=== PATIENT | female | born 1970 | race Hispanic/Latino ===

== ENCOUNTER 2023-08-21 09:20 | Emergency (ER) | payer BC ==
[2023-08-21] MEDS ORDERED: LACTULOSE 20 GM/30 ML UDCUP ONE (13:01)
[2023-08-22 05:29] LABS: ADD UA MICROSCOPIC YES; APPEARANCE,URINE CLEAR (CLEAR); BILIRUBIN,URINE NEGATIVE (NEGATIVE); COLOR,URINE LIGHT-YELLOW (YELLOW); GLUCOSE, URINE (UA) NEGATIVE (NEGATIVE); KETONES,URINE NEGATIVE (NEGATIVE); LEUKOCYTE ESTERASE ,URINE NEGATIVE Leu/uL (NEGATIVE); NITRATE,URINE NEGATIVE (NEGATIVE); OCCULT BLOOD,URINE SMALL (NEGATIVE); PH,URINE 5.5 (5.0-8.0); PROTEIN,URINE NEGATIVE (NEGATIVE); UROBILINOGEN,URINE 0.2 mg/dL (0.2-1.0)
[2023-08-22 05:30] LABS: BILIRUBIN,TOTAL 0.4 mg/dL (0.2-1.0); CREATININE 0.6 mg/dL (0.5-1.5); POTASSIUM 3.6 mmol/L (3.5-5.1)
[2023-08-22 05:33] LABS: BASOPHILS # (AUTO) 0.06 K/uL (0.00-0.20); BASOPHILS % (AUTO) 0.7 % (0.0-5.0); EOSINOPHILS # (AUTO) 0.32 K/uL (0.00-0.70); EOSINOPHILS % (AUTO) 3.7 % (0.0-8.0); HEMATOCRIT 42.2 % (36-48); IMMATURE GRANULOCYTE ABSOLUTE 0.06 K/uL (0-1); LYMPHOCYTES # (AUTO) 2.6 K/uL (1.0-4.8); LYMPHOCYTES % (AUTO) 30.2 % (21.0-51.0); MEAN CORPUSCULAR HEMOGLOBIN 29.1 pg (27.0-33.0); MEAN CORPUSCULAR HGB CONC 32.9 g/dL (32.0-36.0); MEAN CORPUSCULAR VOLUME 88.5 fL (79-99); MONOCYTES # (AUTO) 0.7 K/uL (0.1-1.0); MONOCYTES % (AUTO) 7.7 % (3.0-13.0); MUCUS,URINE RARE LPF (None Seen); NEUTROPHILS # (AUTO) 4.9 K/uL (1.8-7.7); PLATELET COUNT (AUTO) 221 K/uL (130-400); RED BLOOD CELL COUNT(AUTO) 4.77 MIL/uL (4.00-5.50); RED CELL DISTRIBUTION WIDTH 14.1 % (11.0-15.5); SQUAMOUS EPITHELIAL CELL,UR RARE /HPF (0-2); WHITE BLOOD COUNT (AUTO) 8.6 K/uL (4.8-10.8)
== END 2023-08-21 13:05 | disposition home or self-care (01) ==
LOC: EDH 09:20
DX: K59.00 Constipation, unspecified (principal); Z90.710 Acquired absence of both cervix and uterus
CPT/HCPCS: 36415; 74018; 80053; 81001; 84484; 85025

== ENCOUNTER 2023-10-18 20:50 | Emergency (ER) | payer BC ==
[~2023-10-18] VITALS: Ht 154.9 cm; Wt 81.6 kg
[2023-10-18] MEDS ORDERED: HYDROCODONE/ACETAMINOPHEN 5/325 MG TAB PO ONE (22:00)
[2023-10-18] MEDS ORDERED: IBUPROFEN 600 MG TABLET PO ONE (22:00)
[2023-10-18] MEDS ORDERED: ONDANSETRON ODT 4MG TAB SL ONE (22:00)
[2023-10-18 22:25] VITALS: BP 142/50; PULSE 78; RESP 14; O2SAT 97
== END 2023-10-18 22:47 | disposition home or self-care (01) ==
LOC: EDH 20:50
DX: S50.851A Superficial foreign body of right forearm, initial encounter (principal); S50.01XA Contusion of right elbow, initial encounter; S60.211A Contusion of right wrist, initial encounter; I10 Essential (primary) hypertension; E78.00 Pure hypercholesterolemia, unspecified; W01.0XXA Fall on same level from slipping, tripping and stumbling without subsequent striking against object, initial encounter; Y93.89 Activity, other specified; Y92.89 Other specified places as the place of occurrence of the external cause; Y99.8 Other external cause status
CPT/HCPCS: 73080; 73090; 73130

== ENCOUNTER 2025-04-24 18:44 | Emergency (ER) | payer BC ==
[~2025-04-24] VITALS: Ht 154.9 cm; Wt 81.6 kg
[2025-04-24 18:46] VITALS: BP 169/99; PULSE 106; RESP 18; TEMP 101
--- NOTE | 2025-04-24 18:53 | ERN ---
ED Note History of Present Illness Stated Complaint: FLU LIKE SYMPTOMS Chief Complaint: Flu Symptoms Time Seen by MD: 18:47 Dictation: PATIENT IS A 54-YEAR-OLD FEMALE COMING IN WITH FLU-LIKE SYMPTOMS SINCE ATTENDING A [employer] FOR HER BUSINESS ON FRIDAY. SHE STATES THERE WERE A LOT OF PEOPLE THERE. SHE IS CURRENTLY COMPLAINING OF SORE THROAT WITH FRONTAL HEADACHE BODY ACHES, DRY COUGH. SHE HAS HAD LOW-GRADE FEVER CHILLS. NO NAUSEA NO VOMITING NO DIARRHEA. NO LOSS OF TASTE OR SMELL STATES SHE TOOK AN AMOXICILLIN FROM [place] THIS MORNING. I ADVISED PATIENT SHE COULD STOP THE AMOXICILLIN UNTIL ETIOLOGY OF THE FEVER CHILLS WAS FOUND. Allergies: Coded Allergies: No Known Allergies (Unverified Allergy, Unknown, 10/18/23) Past Medical History Past Medical History: High Cholesterol, Hypertension Surgical History: Other Surgical History Other: RT WRIST Family History: Negative Social History: Negative, Lives with family History: Not Applicable RN Note Reviewed/Agreed w/PFSH: Yes Review of System Dictation NORMAL ROS CONSTITUTIONAL: NEGATIVE EXCEPT FOR HPI FEVER CHILLS HEAD/FACE: NEGATIVE EXCEPT FOR HPI EENT: NEGATIVE EXCEPT FOR HPI CLEAR RHINITIS WITH A SORE THROAT RESPIRATORY: NEGATIVE EXCEPT FOR HPI COUGH GASTROINTESTINAL/ABDOMINAL: NEGATIVE EXCEPT FOR HPI GENITOURINARY: NEGATIVE EXCEPT FOR HPI MUSCULOSKELETAL: NEGATIVE EXCEPT FOR HPI INTEGUMENTARY: NEGATIVE EXCEPT FOR HPI NEUROLOGICAL/PSYCH: NEGATIVE EXCEPT FOR HPI HEMATOLOGIC/LYMPHATIC: NEGATIVE EXCEPT FOR HPI ALL SYSTEMS NEGATIVE, EXCEPT NOTED ABOVE. 13 POINT REVIEW OF SYSTEMS ASSESSED AND ALL NEGATIVE EXCEPT FOR ABOVE. Initial Vital Sign VS Vital Signs Date Time Temp Pulse Resp B/P (MAP) Pulse Ox O2 Delivery O2 Flow Rate FiO2 04/24/25 18:46 100.9 106 18 169/99 95 Room Air 0 Physical Exam Dictation VITAL SIGNS REVIEWED GENERAL APPEARANCE: ALERT, ORIENTED X 3, MODERATE ACUTE DISTRESS, WELL DEVELOPED, NOURISHED. OBESE HEAD AND FACE: NON-TRAUMATIC. EYES: PERRL, PINK CONJUNCTIVAS, EYELID NO TRAUMA, ANTERIOR CHAMBER WITH ARCUS SENILIS. EARS: PINNAS INTACT AND NO SIGNS OF TRAUMA OR ERYTHEMA EAR CANALS CLEAR AND NO DISCHARGE TM NO ERYTHEMA NOSE: CLEAR DISCHARGE, NO BLEEDING. OROPHARYNX: MOUTH NORMAL, TONGUE PINK, PHARYNX CLEAR, MILD PHARYNGEAL ERYTHEMA, TONSILS NO EXUDATES, NO ABSCESSES NOTED, MUCOUS MEMBRANE MOIST UVULA MIDLINE, VOICE IS CLEAR NECK: SUPPLE, NON-TENDER, NO THYROMEGALY, NO MASSES, NO JVD, NO BRUITS BREAST:DEFERRED CHEST:NO TENDERNESS, NO CREPITUS, NO PARADOXICAL MOVEMENT, NO RETRACTIONS LUNGS:CLEAR, WELL-VENTILATED, SYMMETRIC, NO RALES, NO WHEEZING, NO RHONCHI, NO STRIDOR, GOOD BREATH SOUNDS BILATERALLY HEART: REGULAR RATE, REGULAR RHYTHM, NO MURMUR, NO GALLOPS VASCULAR: NO PERIPHERAL EDEMA, ABDOMEN: SOFT, POSITIVE BOWEL SOUNDS, NONDISTENDED, NO GUARDING, NONTENDER, NO REBOUND, NO MASSES NO HEPATOMEGALY, NO SPLENOMEGALY, NO COSTELLO'S SIGN, NO HERNIAS. RECTAL: DEFERRED GENITAL: DEFERRED NEUROLOGICAL: NORMAL SPEECH, MOTOR FUNCTION INTACT, SENSORY FUNCTION INTACT MUSCULOSKELETAL: NECK NONTENDER, FULL RANGE OF MOTION, BACK NONTENDER, FULL RANGE OF MOTION, EXTREMITIES: NONTENDER, FULL RANGE OF MOTION SKIN: COLOR PINK, DRY, NO TURGOR, NO RASH, NO LACERATIONS, NO ABRASIONS, NO CONTUSIONS. LYMPHATIC: DEFERRED Results (Laboratory/Radiology) Laboratory/Radiology Laboratory Tests Test 04/24/25 18:50 Influenza Type A Antigen Positive For Type A Influenza Type B Antigen Negative For Type B SARS-CoV-2 Antigen (Rapid) PRESUMPTIVE NEGATIVE Labs Reviewed?: Yes ED Course ED Course Orders Procedure Category Date Status Time Influenza Type A & B, LAB 04/24/25 Complete Rapid 18:49 Covid19 (Sars Antigen LAB 04/24/25 Complete Rapid) 18:49 Ibuprofen 800 Mg Tab PHA 04/24/25 Complete (Motrin) 19:00 Rapid (Group A Strep) LAB 04/24/25 In Process 19:19 Current Medications Medications (Trade) Dose Ordered Sig/Chapo Route PRN Reason Start Time Stop Time Status Last Admin Dose Admin Ibuprofen (moTRIN) 800 mg ONCE ONCE PO 04/24/25 19:00 04/24/25 19:01 DC 04/24/25 19:34 Vital Signs Date Time Temp Pulse Resp B/P (MAP) Pulse Ox O2 Delivery O2 Flow Rate FiO2 04/24/25 19:34 99.1 04/24/25 18:46 100.9 106 18 169/99 95 Room Air 0 1940/PATIENT DIAGNOSED WITH INFLUENZA A AND EMPIRICALLY WE WILL BE TREATED FOR ACUTE PHARYNGITIS UNSPECIFIED. SHE WILL BE DISCHARGED HOME WITH TAMIFLU AND AUGMENTIN Medical Decision Making MDM MEDICAL DECISION-MAKING BASED ON SWABS FOR FLU AND COVID-19. PATIENT WE WILL BE TREATED EMPIRICALLY FOR ACUTE PHARYNGITIS UNSPECIFIED POSITIVE FOR INFLUENZA A. DISCHARGED HOME WITH SUPPORTIVE CARE INSTRUCTIONS WE WILL BE GIVEN TAMIFLU AND AUGMENTIN DX & DISP Disposition: Discharge Departure Impression: Primary Impression: Influenza A Additional Impressions: Acute pharyngitis, unspecified, Fever Condition: Stable Scripts Oseltamivir Phosphate (Tamiflu) 75 Mg Cap 75 MG PO BID for 5 Days, #10 CAP Prov: RICHARD ARAUJO NP 04/24/25 Ibuprofen (Ibuprofen 800 mg Tab) 800 Mg Tab 800 MG PO Q8H PRN for fever or pain, #30 TAB 0 Refills Prov: RICHARD ARAUJO NP 04/24/25 Amoxicillin/Potassium Clav (Amox Tr-K Clv 875-125 mg Tab) 875 Mg-125 Mg Tablet 1 EACH PO BID for 7 Days, #14 TAB 0 Refills Prov: RICHARD ARAUJO NP 04/24/25 Additional Instructions: FOLLOW-UP WITH PRIMARY CARE PROVIDER IN 1 TO 2 DAYS. TAKE MEDICATIONS DIRECTED HERE IN THE EMERGENCY ROOM. OKAY TO CONTINUE HOME MEDICATIONS UNLESS OTHERWISE DISCUSSED DURING YOUR VISIT IN THE EMERGENCY ROOM TODAY. RETURN TO YOUR NEAREST EMERGENCY ROOM IF SYMPTOMS WORSEN OR IF THERE IS NO IMPROVEMENT. CALL 911 IF YOU NEED IMMEDIATE ASSISTANCE. TAKE TYLENOL OR MOTRIN OVER-THE-C OUNTER NEEDED AND IF NO CONTRAINDICATIONS ARE PRESENT. INCREASE ORAL HYDRATION. A WOUND CULTURE OR URINE CULTURE WAS ORDERED HERE IN THE EMERGENCY ROOM DEPARTMENT PLEASE FOLLOW-UP WITH PRIMARY CARE PROVIDER AND ADVISE THEM TO GET REPEAT PORTS FROM OUR FACILITY. IF YOU HAD ANY ELVA WRAP/SPLINTS THAT WERE APPLIED HERE, PLEASE DO NOT REMOVE THEM UNTIL YOU SEE YOUR PRIMARY CARE OR SPECIALTY. TAKE TAMIFLU DIRECTED UNTIL GONE. TAKE AUGMENTIN DIRECTED UNTIL GONE. TAKE MOTRIN EVERY 6-8 HOURS WITH FOOD NEEDED FOR FEVER CHILLS. NO WORK UNTIL CLEARED BACK BY YOUR PRIMARY CARE DOCTOR. Referrals: RAMONE PRESCOTT MD (PCP) Time of Disposition: 19:41 I have reviewed the case, and I agree with, Diagnosis and Plan RICHARD ARAUJO NP Apr 24, 2025 18:53
[2025-04-24 19:20] LABS: COVID19 (SARS ANTIGEN RAPID) PRESUMPTIVE NEGATIVE (NEGATIVE)
[2025-04-24 19:21] LABS: INFLUENZA TYPE B Negative For Type B (NEGATIVE)
[2025-04-24 19:34] VITALS: TEMP 99.1
[2025-04-24] MEDS: ibuPROFEN 800 MG TAB PO ONE (19:34)
[2025-04-24 19:35] LABS: INFLUENZA TYPE A Positive For Type A (NEGATIVE)
[2025-04-24] MEDS ORDERED: AMOX1TAB16 PO (19:43)
[2025-04-24] MEDS ORDERED: OSEL75 PO (19:43)
[2025-04-24] MEDS ORDERED: IBUP-2077 PO (19:43)
== END 2025-04-24 19:53 | disposition home or self-care (01) ==
LOC: EDH 18:44
DX: J10.1 Influenza due to other identified influenza virus with other respiratory manifestations (principal); R50.9 Fever, unspecified; E78.00 Pure hypercholesterolemia, unspecified; I10 Essential (primary) hypertension; Z20.822 Contact with and (suspected) exposure to COVID-19
CPT/HCPCS: 87426; 87804; 99283